=== PATIENT | female | born 1965 | race Caucasian/White ===

== ENCOUNTER → 2018-03-02 14:31 | Outpatient (POV) | payer OTHER, SELFPAY ==
--- NOTE | 2018-03-02 16:34 | XR_ITS ---
XR chest 2V HISTORY: ITS.REASON: CHRONIC BRONCHITIS ORDERING PHYSICIAN: Yang Mcclain MD PATIENT AGE: 52 years COMPARISON: None FINDINGS: There is cardiomegaly with mild pulmonary venous congestion suggesting mild CHF. No lobar consolidation or collapse. No effusions. No acute bony anomalies. IMPRESSION: Mild CHF with cardiomegaly
== END ==
PROVIDERS: Visit Provider Internal Medicine
DX: J42 Unspecified chronic bronchitis (principal); F17.200 Nicotine dependence, unspecified, uncomplicated
CPT/HCPCS: 71046

== ENCOUNTER → 2018-03-24 12:58 | Outpatient (CLI) | payer OTHER, SELFPAY ==
[2018-03-24 13:40] VITALS: PULSE 81; PULSE 88
[2018-03-24 14:10] VITALS: BP 124/87; BP 140/94; PULSE 107; PULSE 81; RESP 16; RESP 22; O2SAT 90; O2SAT 96
== END ==
PROVIDERS: PCP Family Medicine Geriatric Medicine; Visit Provider Internal Medicine
DX: J42 Unspecified chronic bronchitis (principal)
CPT/HCPCS: 94060; 94618; 94640; 94726; 94729

== ENCOUNTER → 2018-04-27 13:07 | Outpatient (POV) | payer OTHER, SELFPAY | PROVIDERS: Visit Provider Internal Medicine | DX: Z00.00 Encounter for general adult medical examination without abnormal findings (principal) ==